=== PATIENT | female | born 1960 | race Caucasian/White ===

== ENCOUNTER 2016-10-10 22:38 | Emergency (ER) | payer BC ==
[~2016-10-10] VITALS: Ht 152.4 cm; Wt 41.0 kg
[~2016-10-10 22:38] MED LIST: ASPIR 8181 M1 PO; ENDOCET 5-3251 EACH PO
[2016-10-11] MEDS ORDERED: MOTRIN800 MG PO (01:01)
[2016-10-11] MEDS ORDERED: ULTRACET1 TABLET PO (01:01)
[2016-10-11 01:33] VITALS: BP 147/77
== END 2016-10-11 01:37 | disposition home or self-care (01) ==
LOC: EME 22:38
DX: S50.01XA Contusion of right elbow, initial encounter (principal); S20.211A Contusion of right front wall of thorax, initial encounter; V00.121A Fall from non-in-line roller-skates, initial encounter; Y93.51 Activity, roller skating (inline) and skateboarding; Z79.82 Long term (current) use of aspirin
CPT/HCPCS: 71101; 73080; 99281; 99283